=== PATIENT | female | born 1990 | race Caucasian/White ===

== ENCOUNTER 2016-10-21 14:48 | Emergency (ER) | payer MEDICARE ==
[~2016-10-21] VITALS: Ht 167.6 cm; Wt 80.5 kg
[~2016-10-21 14:48] MED LIST: DOCU-30 PO; DOXY25TA18 PO; FLUO20CA19 PO; HYDR1TAB12 PO; IBUP200T48 PO; PREN1TAB27 PO; VITA1CAP PO
[2016-10-21 14:49] VITALS: BP 125/78
[2016-10-21] MEDS ORDERED: DEXAMETHASONE 4 MG TABLET PO ONE (15:30)
[2016-10-21] MEDS ORDERED: DEXAMETHASONE 4 MG TABLET ONE (16:24)
== END 2016-10-21 16:29 | disposition home or self-care (01) ==
LOC: ED 16:00
DX: J20.8 Acute bronchitis due to other specified organisms (principal)
CPT/HCPCS: 71020; 87081; 87880

== ENCOUNTER 2016-12-04 20:38 | Emergency (ER) | payer MEDICAID, MEDICARE ==
[~2016-12-04] VITALS: Ht 167.6 cm; Wt 81.3 kg
[2016-12-04 20:40] VITALS: BP 122/83
[2016-12-04] MEDS ORDERED: IBUPROFEN 200 MG TABLET PO ONE (23:00)
[2016-12-04] MEDS ORDERED: IBUPROFEN 200 MG TABLET ONE (23:16)
== END 2016-12-05 00:04 ==
LOC: ED 23:45
DX: S30.0XXA Contusion of lower back and pelvis, initial encounter (principal); J45.909 Unspecified asthma, uncomplicated; X58.XXXA Exposure to other specified factors, initial encounter; Y93.89 Activity, other specified; Y92.89 Other specified places as the place of occurrence of the external cause; Y99.8 Other external cause status
CPT/HCPCS: 99281